=== PATIENT | male | born 1995 | race Caucasian/White ===

== ENCOUNTER 2024-08-15 22:24 | Emergency (ER) | payer SELFPAY ==
[~2024-08-15] VITALS: Ht 177.8 cm; Wt 77.0 kg
[2024-08-15 22:25] VITALS: O2SAT 100
[2024-08-16 00:33] VITALS: BP 160/87; PULSE 104; RESP 15; TEMP 37.1; O2SAT 98
== END 2024-08-16 00:52 | disposition home or self-care (01) ==
LOC: ER 22:24
DX: F41.9 Anxiety disorder, unspecified (principal)
CPT/HCPCS: 99283